=== PATIENT | female | born 1965 | race Caucasian/White ===

== ENCOUNTER → 2016-05-29 | Outpatient (CLI) | payer BC ==
--- NOTE | ~2016-05-29 | MY11 ---
[facility] A Service of [facility] RADIOLOGY TEXT RESULTS PATIENT: JANETT AGGARWAL LOCATION: [facility] : 63 UNIT #: [id number] AGE: [address]: AMELIA FLOR APRN SEX: F ORDER DR: [id number] [address] [address] [id number] O MR#: [id number] Acc #: [id number] NAME: JANETT AGGARWAL : 1965 SEX: F STUDY DATE/TIME: 05/29/2016 15:39 UNIT: [facility] ROOM: STUDY DESCRIPTION: MY Mammogram Screening Dig Robert Attending Physician: Amelia Flor Aprn Referring Physician: Amelia Flor Aprn Ordering Physician: Amelia Flor Aprn Primary Care Physician: Amelia Flor Aprn MEDICAL IMAGING REPORT This report is preliminary unless electronic signature is present. EXAM Digital screening mammogram 05/29/2016 HISTORY 50-year-old woman, baseline mammogram. No risk elevation. COMPARISON None FINDINGS Digital imaging of each breast was completed utilizing a two-view examination of each breast in craniocaudal and mediolateral-oblique projections. Review and interpretation of digital mammograms include a second review in conjunction with FDA-approved CAD device. There is a normal parenchymal presentation bilaterally consistent with the patient's age. There are no breast masses imaged and no parenchymal asymmetry is visualized. There are no suspicious microcalcifications and I see no focal architectural disturbance. IMPRESSION Negative screening digital mammogram. One-year followup recommended. Patients over the age of 40 are entered into a reminder system with target due date for the next mammogram. A result letter will also be sent to the patient. BIRADS: 1 Negative Dictated by... Sam Portillo M.D. THIS IS AN ELECTRONICALLY VERIFIED REPORT [facility] A Service of [facility] RADIOLOGY TEXT RESULTS PATIENT: JANETT AGGARWAL LOCATION: [facility] : 63 UNIT #: [id number] AGE: [address]: AMELIA FLOR APRN SEX: F ORDER DR: Sam Portillo M.D. at 06/01/2016 8:01 AM Nate TD: 05/29/2016 17:58 JOB #: [id number] MEDICAL IMAGING REPORT Page 1 of 1
== END | disposition home or self-care (01) ==
LOC: SMAM 14:58
DX: Z12.31 Encounter for screening mammogram for malignant neoplasm of breast (principal)
CPT/HCPCS: G0202